=== PATIENT | female | born 1985 | race Caucasian/White ===

== ENCOUNTER → 2021-03-19 10:51 | Outpatient (BNVA) | payer SELFPAY | PROVIDERS: Family Provider Nurse Practitioner; PCP General Practice; Visit Provider Nurse Practitioner Family | DX: F41.9 Anxiety disorder, unspecified (principal); E28.2 Polycystic ovarian syndrome; N93.9 Abnormal uterine and vaginal bleeding, unspecified | CPT/HCPCS: 80053; 80061; 82306; 82607; 83036; 84443; 85025 ==

== ENCOUNTER → 2021-04-02 13:41 | Outpatient (BNVA) | payer SELFPAY | PROVIDERS: Family Provider Nurse Practitioner; PCP General Practice; Visit Provider Obstetrics & Gynecology | DX: N93.9 Abnormal uterine and vaginal bleeding, unspecified (principal) | CPT/HCPCS: 83036; 83525; 88175 ==

== ENCOUNTER → 2021-04-17 08:10 | Outpatient (BNVA) | payer MEDICAID, SELFPAY | PROVIDERS: Family Provider Nurse Practitioner; PCP General Practice; Visit Provider Obstetrics & Gynecology | DX: N85.8 Other specified noninflammatory disorders of uterus (principal); N93.9 Abnormal uterine and vaginal bleeding, unspecified | CPT/HCPCS: 76830 ==

== ENCOUNTER → 2021-05-09 10:55 | Outpatient (BNVA) | payer MEDICAID, SELFPAY | PROVIDERS: PCP General Practice; Visit Provider Obstetrics & Gynecology | DX: N93.9 Abnormal uterine and vaginal bleeding, unspecified (principal); N85.8 Other specified noninflammatory disorders of uterus | CPT/HCPCS: 87635 ==

== ENCOUNTER 2021-05-13 10:33 | Day surgery (SDC) | payer SELFPAY ==
[2021-05-09 12:24] VITALS: BMI 41.5
[2021-05-09 12:30] LABS: Basophils % 0.3 %; Eosinophils # 0.1 10^3/uL (0.0-0.8); Eosinophils % 0.8 %; Hemoglobin 13.5 g/dL (11.5-15.3); Lymphocytes % 32.4 %; Mean Corpuscular HGB Conc 32.9 g/dL (30.0-36.0); Mean Corpuscular Hemoglobin 27.4 pg (28.0-34.0); Mean Corpuscular Volume 83.2 fL (81-99); Mean Platelet Volume 9.4 fL (7.4-10.4); Monocytes # 0.5 10^3/uL (0.2-0.9); Monocytes % 5.7 %; Neutrophils # 5.53 10^3/uL (1.8-7.7); Neutrophils % 60.5 %; Nucleated Red Blood Cells % 0 %; Platelet Count 434 10^3/cmm (130-400); Red Blood Count 4.93 10^6/uL (4.1-5.3); Red Cell Distribution Width 13.4 % (12.1-15.1); White Blood Count 9.1 10^3/uL (4.0-10.0)
--- NOTE | 2021-05-09 12:46 | ANES.PREANE2 ---
Pre-Anesthetic Assessment Pre-Anesthetic Assessment: Height/Weight: Height 1.63 m Weight 109.769 kg Preop Diagnosis: fibroids Proposed Procedure: Operation Date: 05/13/21 10:20 Proposed Procedures p Hysteroscopy, dilation and curettage with myosure [id number] N85.8(Not Applicable) - Dai Estrada MD Familial anesthetic complications: None Social: Social History: No alcohol and No tobacco Exam: Pre-Anes Outpt Exam: alert, oriented x 3, clear to auscultation bilaterally and regular rate & rhythm Airway: Cervical ROM: WNL MP: 3 Dentition: Full Metabolic: Metabolic: DM (pcos vs dm) and Morbid obesity Comments: pcos Anesthetic Plan: ASA status: 2 Anesthesia: General PFSH Anesthesia PFSH: Medical History Anxiety PCOS (polycystic ovarian syndrome) Surgical History No pertinent past surgical history Family History Mother Diabetes Hypertension Sister Diabetes Hypertension Ovarian cyst Family/Other Stroke Denies family history of Clotting disorder Heart disease Psychiatric illness Bleeding disorder Cancer Thyroid disease Social History Marital status: Current occupation: [employer] Female Reproductive History: Date of last menstrual period: 04/28/21 Data Anesthesia CBC & Chem 7: 05/09/21 12:05 05/09/21 12:05 Other Labs: Laboratory Results - last 48 hr 05/09/21 12:05 WBC 9.1 RBC 4.93 Hgb 13.5 Hct 41.0 MCV 83.2 MCH 27.4 L MCHC 32.9 RDW 13.4 Plt Count 434 H MPV 9.4 Neut % (Auto) 60.5 Lymph % (Auto) 32.4 [place] % (Auto) 5.7 Eos % (Auto) 0.8 Baso % (Auto) 0.3 Neut # (Auto) 5.53 Lymph # (Auto) 3.0 [place] # (Auto) 0.5 Eos # (Auto) 0.1 Baso # (Auto) 0.0 Nucleated RBC % (auto) 0 Nucleated RBCs # 0.0 Cardiac Studies: No Data to Display
[2021-05-09 12:47] LABS: Anion Gap 13.8 (5-19); Blood Urea Nitrogen 12 mg/dL (6-20); Calcium 8.5 mg/dL (8.5-10.5); Carbon Dioxide 25 mmol/L (22-29); Chloride 103 mmol/L (98-107); Glomerular Filtration Rate 113.8 mL/min (90-130); Glucose 95 mg/dL (65-115); Osmolality Calculated 286 mOsm/kg (285-295); Potassium 3.8 mmol/L (3.5-5.1); Sodium 138 mmol/L (136-145)
[2021-05-13 11:02] VITALS: BP 159/89; PULSE 76; RESP 18; TEMP 36.8; O2SAT 97
[2021-05-13 11:17] LABS: Glucose Point of Care 103 mg/dL (70-110)
[2021-05-13 11:21] LABS: OR HCG Qualitative Urine Negative (Negative)
[2021-05-13] MEDS: ketorolac 30 mg/mL INJ IVP (11:34)
[2021-05-13] MEDS: sodium chloride 0.9% 1,000 ML 30 ML IV (11:36)
--- NOTE | 2021-05-13 13:04 | P.ANESUD_ITS ---
Pre-Anesthetic Update Pre-Anesthetic Assessment: Date of Surgery/Procedure: 05/13/21 Preop Demi gnosis: uterine mass Proposed Procedure: Operation Date: 05/13/21 12:15 Proposed Procedures p Hysteroscopy, dilation and curettage with myosure [id number] N85.8(Not Applicable) - Dai Estrada MD Any changes to Pre-Anesthetic Assessment?: No Last Intake: Intake Last Liquid Date 05/12/21 Last Liquid Time 20:00 Last Solid Date 05/12/21 Last Solid Time 20:00 Labs Last 48hrs: Laboratory Results - last 48 hr 05/13/21 05/13/21 11:08 11:19 POC Glucose 103 Urine HCG, Qual Negative Vitals: Temperature 98.3 F 05/13/21 11:02 Temperature Source Temporal Artery S can 05/13/21 11:02 Pulse Rate 76 05/13/21 11:02 Respiratory Rate 18 05/13/21 11:02 Blood Pressure 159/89 05/13/21 11:02 Blood Pressure Zara n 112 05/13/21 11:02 Pulse Oximetry 97 05/13/21 11:02 Oxygen Delivery Me thod 05/13/21 11:02 Exam: Pre-Anes Outpt Exam: alert, oriented x 3, clear to auscultation bilaterally and regular rate & rhythm Cardiac Studies: No Data to Display
--- NOTE | 2021-05-13 13:08 | W.PM.OPSUD ---
Surgery/Procedure H&P Update DATE OF PROCEDURE: May 13, 2021 DATE H&P PERFORMED: 05/09/21 H&P UPDATE INFORMATION: I have reviewed H&P completed within last 30 days, I have examined patient prior to procedure and No changes to prior documentation PREOP DIAGNOSIS: uterine mass PLANNED PROCEDURE: Operation Date: 05/13/21 12:15 Proposed Procedures p Hysteroscopy, dilation and curettage with myosure [id number] N85.8(Not Applicable) - Dai Estrada MD
--- NOTE | 2021-05-13 14:11 | PM.OP ---
Operative Report Date of procedure: May 13, 2021 Pre-op Diagnosis: uterine mass Post-op diagnosis: same Post-op Findings: large amount of endometrial tissue Procedure Done: hysteroscopy, dilation and curettage with myosure Specimens removed/disposition: endometrial curettings to pathology for fresh and frozen Surgeon: Dai Estrada Anesthesia: MAC Estimated blood loss (mL): 50 IV fluids (mL): 1,000 Complications: some bleeding post procedure controlled with pitocin and TXA Findings: 12 week sized uterus with excessive tissue Condition: stable Disposition: PACU Brief History: The patient initially saw me for abnormal uterine bleeding. She had an ultrasound which showed a 9 cm uterine mass. She was scheduled for surgery to take a sample of this tissue. Procedure: The patient was taken to the operating room where monitored anesthesia was administered and to be adequate. She was prepped and draped in the normal sterile fashion in the dorsal lithotomy position in Jann stirrups. A weighted speculum was placed into the vagina and the anterior lip of the cervix grasped with a single-tooth tenaculum. The uterus was sounded to [ ] cm. The cervix was not dilated. I was unable to pass the sound due to a mass in the uterus or cervix. The hysteroscope was advanced into the endometrial cavity. There was initally a polyp visualized. The MyoSure device was activated and the tissue was removed. As I removed tissue, I was able to enter the uterine cavity. It was filled completely with tissue. It had the look of Asherman's syndrome. Pictures were taken pre and post procedure. All instruments were removed. The patient had some bleeding postoperatively. This was treated with pitocin and TXA. The patient tolerated the procedure well. Sponge lap and needle counts were correct x3. She was taken to the recovery room in stable condition. I have contacted pathology and they will perform a frozen section of the specimen.
[2021-05-13 14:16] VITALS: BP 108/66; PULSE 81; RESP 17; TEMP 36.9; O2SAT 97
[2021-05-13 14:20] VITALS: BP 82/54; PULSE 76; RESP 16; O2SAT 98
--- NOTE | 2021-05-13 14:20 | PM.DCS ---
Discharge Providers Date of Discharge: May 13, 2021 Attending Provider at Discharge: Dai Estrada MD Primary Care Provider: Johan Monterroso MD Diagnoses at Discharge Discharge Diagnosis (1) Postoperative state: Status: Acute Reason for Visit Reason for Visit: Hysteroscopy, dilation and curettage with myosure Hospital Course Hospital Course The patient presented for surgery. she did well postoperatively and was ready for discharge. Discharge Data Data Completed and Pending: Pending at discharge Category Date Time Status ES surgery / GI i mages Routine Exams 05/13/21 13:13 Taken Labs from last 24 hours 05/13/21 05/13/21 11:19 11:08 POC Glucose 103 Urine HCG, Qual Negative Vitals: Last Vital Signs Temp 98.3 F 05/13/21 11:02 Pulse 76 05/13/21 11:02 Resp 18 05/13/21 11:02 BP 159/89 05/13/21 11:02 Pulse Ox 97 05/13/21 11:02 Discharge Plan Discharge Patient Disposition: Home Condition: Stable Prescriptions: Continued hydroxyzine HCl 25 mg tablet 25 mg PO BID PRN (Reason: anxiety) Qty: 60 RF: 2 omega-3 fatty acids 500 mg capsule 500 mg PO DAILY RF: 0 ergocalciferol (vitamin D2) 1,250 mcg (50,000 unit) capsule 1,250 mcg PO .weekly Qty: 12 RF: 0 metformin 500 mg tablet 500 mg PO TID Qty: 90 RF: 6 Discharge Orders: Discharge Order (Routine); Ordered 05/13/21 Ordered By: Dai Estrada Discharge Attestations Time Spent in Discharge Care*: less than 30 min Quality Metrics Clinical Quality Measures During this hospital stay, did patient experience: None Coding Level of Care Code Acute g DC note Diagnoses Postoperative state Z98.890
[2021-05-13 14:25] VITALS: BP 91/56; PULSE 80; RESP 20; O2SAT 99
[2021-05-13 14:30] VITALS: BP 117/63; PULSE 79; RESP 22; TEMP 36.9; O2SAT 98
--- NOTE | 2021-05-13 14:35 | ANE.PACU2 ---
Inpatient post-anesthesia follow up: Airway intact: Yes Vital signs: Temperature 98.5 F Pulse Rate 80 Respiratory Rate 20 Blood Pressure 91/56 Pulse Oximetry 99 Oxygen Delivery Me thod Room Air Oxygen Flow Rate Fraction of Inspir ed Oxygen Hydration adequate: Yes Nausea and vomiting: No Pain level: 1 Mental status: Baseline
[2021-05-13 14:49] VITALS: BP 116/74; PULSE 70; RESP 18; TEMP 36.9; O2SAT 99
== END 2021-05-13 16:00 | disposition home or self-care (01) ==
PROVIDERS: PCP General Practice; Visit Provider Obstetrics & Gynecology
PROC: 0UDB8ZZ Extraction of Endometrium, Via Natural or Artificial Opening Endoscopic (ICD-10-PCS; CPT 58558; principal; 2021-05-13 12:05)
DX: N85.8 Other specified noninflammatory disorders of uterus (principal); E11.9 Type 2 diabetes mellitus without complications; E66.01 Morbid (severe) obesity due to excess calories; Z68.41 Body mass index [BMI] 40.0-44.9, adult
CPT/HCPCS: 58558; 36415; 36416; 80048; 81025; 82962; 84703; 85025; 87086; 88305; 88331; J0690; J1885; J2250; J2405; J2704; J3010; J7030

== ENCOUNTER → 2021-08-28 08:10 | Outpatient (BNVA) | payer MEDICAID, SELFPAY | PROVIDERS: PCP General Practice; Visit Provider Obstetrics & Gynecology | DX: N85.2 Hypertrophy of uterus (principal) | CPT/HCPCS: 76830 ==

== ENCOUNTER → 2021-09-11 10:07 | Outpatient (BNVA) | payer MEDICAID, SELFPAY | PROVIDERS: PCP General Practice; Visit Provider Obstetrics & Gynecology | DX: N85.8 Other specified noninflammatory disorders of uterus (principal); Z20.822 Contact with and (suspected) exposure to COVID-19 | CPT/HCPCS: 87635 ==

== ENCOUNTER 2021-09-16 15:15 | Inpatient (IN) | payer SELFPAY ==
[2021-09-15 09:09] VITALS: BMI 42.0
[2021-09-16] VITALS (16 sets, daily range): BP systolic 95–140; BP diastolic 60–82; PULSE 66–91; RESP 15–25; TEMP 36.2–37.5; O2SAT 98–100; BMI 42.0
[2021-09-16 09:08] LABS: OR HCG Qualitative Urine Negative (Negative)
[2021-09-16 09:16] LABS: Basophils % 0.2 %; Eosinophils % 0.5 %; Hematocrit 43.9 % (37.0-47.0); Hemoglobin 14.7 g/dL (11.5-15.3); Lymphocytes # 2.6 10^3/uL (0.8-4.8); Lymphocytes % 32.2 %; Mean Corpuscular HGB Conc 33.5 g/dL (30.0-36.0); Mean Corpuscular Hemoglobin 27.9 pg (28.0-34.0); Mean Corpuscular Volume 83.3 fl (81-99); Mean Platelet Volume 9.3 fL (7.4-10.4); Monocytes # 0.5 10^3/uL (0.2-0.9); Monocytes % 5.7 %; Neutrophils # 4.95 10^3/uL (1.8-7.7); Neutrophils % 61.2 %; Nucleated Red Blood Cells % 0 %; Platelet Count 352 10^3/cmm (130-400); Red Blood Count 5.27 10^6/uL (4.1-5.3); Red Cell Distribution Width 14.4 % (12.1-15.1); White Blood Count 8.1 10^3/uL (4.0-10.0)
[2021-09-16] MEDS: acetaminophen 1,000 MG/100 ML PIGGYBACK 400 MG IV (09:20)
[2021-09-16] MEDS: sodium chloride 0.9% 1,000 ML 30 ML IV (09:20)
[2021-09-16] MEDS: gabapentin 300 mg Capsule PO (09:21)
[2021-09-16] MEDS: CELEcoxib 200 mg Capsule 400 MG PO (09:21)
[2021-09-16] MEDS: phenazopyridine 100 mg Tablet PO (09:22)
[2021-09-16] MEDS: ketorolac 30 mg/mL INJ IVP ×3 (09:23→22:34)
[2021-09-16 09:42] LABS: Alanine Aminotransferase 26 U/L (0-33); Albumin Level 4.2 g/dL (3.5-5.2); Alkaline Phosphatase 58 IU/L (35-105); Aspartate Amino Transferase 21 U/L (0-32); Blood Urea Nitrogen 12 mg/dL (6-20); Calcium 8.7 mg/dL (8.5-10.5); Carbon Dioxide 23 mmol/L (22-29); Chloride 104 mmol/L (98-107); Globulin 2.7 g/dL (1.3-4.6); Glomerular Filtration Rate 140.4 mL/min (90-130); Glucose 106 mg/dL (65-115); Osmolality Calculated 288 mOsm/kg (285-295); Sodium 139 mmol/L (136-145); Total Bilirubin 0.7 mg/dL (0.15-1.2); Total Protein 6.9 g/dL (6.6-8.7)
[2021-09-16 09:44] LABS: Anion Gap 15.5 (5-19); Potassium 3.5 mmol/L (3.5-5.1)
--- NOTE | 2021-09-16 09:58 | ANES.PREANE2 ---
Pre-Anesthetic Assessment Pre-Anesthetic Assessment: Height/Weight: Height 1.63 m Weight 111.13 kg Temp Pulse Resp BP Pulse Ox 98 F 66 18 95/60 99 09/16/21 08:27 09/16/21 08:27 09/16/21 08:27 09/16/21 08:27 09/16/21 08:27 Preop Diagnosis: Uterine mass, AUB, simple hyperplasia Proposed Procedure: Operation Date: 09/16/21 09:40 Proposed Procedures p Laparoscopic Assist Vaginal Hysterectomy 82430 N85.8(Not Applicable) - Dai Estrada MD s Laparoscopic Salpingectomy(Bilateral) - Dai Estrada MD Familial anesthetic complications: none Was Beta Nelly taken within 24 hours: N/A Was Clonidine taken within 24 hours: N/A Last intake: Intake Last Liquid Date 09/15/21 Last Liquid Time 19:00 Last Solid Date 09/15/21 Last Solid Time 19:00 Social: Social History: No alcohol and No tobacco Exam: Pre-Anes Outpt Exam: alert, oriented x 3, clear to auscultation bilaterally and regular rate & rhythm Airway: Cervical ROM: WNL MP: 3 Dentition: Full Metabolic: Metabolic: Morbid obesity Comments: pcos Anesthetic Plan: ASA status: 3 Anesthesia: General Risk of > 500 ml blood loss (7ml/kg in children): No Meds/Allergies Current Medications: Current Medications Generic Name Dose Route Start Last Admin Trade Name Freq PRN Reason Stop Dose Admin Sodium Chloride 1,000 mls @ 30 ml s/hr 09/16/21 08:30 09/16/21 09:20 Sodium Chloride 0.9% IV 09/17/21 08:29 30 mls/hr .Q24H TIMBO Administration Phenazopyridine HC l 100 mg 09/16/21 08:30 09/16/21 09:22 Phenazopyridine 100 Mg Tablet PO 100 mg ONCE TIMBO Administration PFSH Anesthesia PFSH: Medical History Anxiety PCOS (polycystic ovarian syndrome) Surgical History No pertinent past surgical history Family History Mother Diabetes Hypertension Sister Diabetes Hypertension Ovarian cyst Family/Other Stroke Denies family history of Clotting disorder Heart disease Psychiatric illness Bleeding disorder Cancer Thyroid disease Social History Marital status: Current occupation: [employer] Female Reproductive History: Date of last menstrual period: 09/12/21 Data Anesthesia CBC & Chem 7: 09/16/21 08:57 09/16/21 08:57 Other Labs: Laboratory Results - last 48 hr 09/16/21 09/16/21 09/16/21 08:57 08:57 09:07 WBC 8.1 RBC 5.27 Hgb 14.7 Hct 43.9 MCV 83.3 MCH 27.9 L MCHC 33.5 RDW 14.4 Plt Count 352 MPV 9.3 Neut % (Auto) 61.2 Lymph % (Auto) 32.2 [place] % (Auto) 5.7 Eos % (Auto) 0.5 Baso % (Auto) 0.2 Neut # (Auto) 4.95 Lymph # (Auto) 2.6 [place] # (Auto) 0.5 Eos # (Auto) 0.0 Baso # (Auto) 0.0 Nucleated RBC % (auto) 0 Nucleated RBCs # 0.0 Sodium 139 Potassium 3.5 Chloride 104 Carbon Dioxide 23 Anion Gap 15.5 BUN 12 Creatinine 0.5 GFR Calculation 140.4 H Glucose 106 Calculated Osmolality 288 Calcium 8.7 Total Bilirubin 0.7 AST 21 ALT 26 Alkaline Phosphatase 58 Total Protein 6.9 Albumin 4.2 Globulin 2.7 Urine HCG, Qual Negative Cardiac Studies: No Data to Display
--- NOTE | 2021-09-16 10:56 | W.PM.OPSUD ---
Surgery/Procedure H&P Update DATE OF PROCEDURE: September 16, 2021 DATE H&P PERFORMED: 09/11/21 H&P UPDATE INFORMATION: I have reviewed H&P completed within last 30 days, I have examined patient prior to procedure and No changes to prior documentation PREOP DIAGNOSIS: Uterine mass, AUB, simple hyperplasia PLANNED PROCEDURE: Operation Date: 09/16/21 09:40 Proposed Procedures p Laparoscopic Assist Vaginal Hysterectomy 65740 N85.8(Not Applicable) - Dai Estrada MD s Laparoscopic Salpingectomy(Bilateral) - Dai Estrada MD Related Problem List Diagnoses (1) Morbid obesity with BMI of 40.0-44.9, adult: (2) Thickened endometrium: (3) Uterine mass: (4) Abnormal uterine bleeding (AUB):
--- NOTE | 2021-09-16 12:42 | SUR.OPER ---
1230 attempted to reach pts family, phone number given was wrong.
--- NOTE | 2021-09-16 12:56 | PM.OP ---
Operative Report Date of procedure: September 16, 2021 Pre-op Diagnosis: Uterine mass, AUB, simple hyperplasia Post-op diagnosis: same Post-op Findings: Morbidly obese patient with difficult exposure of laparotomy wound Procedure Done: Exploratory laparotomy Surgeon: Bhanu Amin Surgeon: As financial sales assistant surgeon Heating Fixture Tender: Sherwin Nash and Justyna Sullivan Circulating nurse Shanell Fernandez Anesthesia: General (instrument maker apprentice Atul Batres) Estimated blood loss (mL): 10 Condition: stable Brief History: Patient undergoing total abdominal hysterectomy per gynecology service and intraoperative consultation was initiated for difficult exposure of the laparotomy wound Procedure: I was called in the OR by Dr. Nayak to help setting the Bookwalter for better exposure giving the patient morbid obesity status. Patient already had Pfannenstiel incision created by Dr. Paredes and the peritoneal cavity was already entered. There were already 2 laps in the abdomen that I did retrieve out and I started adjusting the Bookwalter after running the bowel and at that point the small bowel and colon were viable. To have a better exposure and the inferior lower part of the fascia was incised using Bovie cauterization under direct vision to facilitate exposure for LONG FILLER CIGAR ROLLER MACHINE service. Viscera look normal without complications and 3 laps wet to dry were placed in the abdominal cavity by me. Count was completed prior to leaving the OR. At this point I did handle the case over to Dr. Estrada Thank you for consulting general surgery to participate taking care Ms. Rodgers
--- NOTE | 2021-09-16 15:17 | P.OP_ITS ---
Operative Report Date of procedure: September 16, 2021 Pre-op Diagnosis: Uterine mass, AUB, simple hyperplasia Post-op diagnosis: same Post-op Findings: extremely enlarged uterus, about 20 week sized. polycystic ovaries. Normal appearing fallopian tubes. Uterus sounded to 10 cm Procedure Done: total abdominal hysterectomy with bilateral salpingectomy Specimens removed/disposition: uterus and bilateral fallopian tubes to pathology Surgeon: Dai Estrada Anesthesia: General Estimated blood loss (mL): 1,000 IV fluids (mL): 1,700 Urine output (mL): 1,000 Complications: unable to see into the pelvis due to the grossly enlarged uterus and the adhesions of bowel. I converted to an open procedure. Findings: 20 week sized uterus, polycystic ovaries and normal appearing fallopian tubes Condition: stable Disposition: floor Brief History: The patient was taken to the operating room where general anesthesia was administered and found to be adequate. She was prepped and draped in the normal sterile fashion in the dorsal lithotomy position. A monte catheter was placed. The anterior lip of the cervix was grasped with a single- tooth tenaculum. The [employer] uterine manipulator was placed. Attention was then turned to the abdomen. The gloves were changed. An infraumbilical incision was made and carried down to the underlying layer of fascia. I was unable to place the longest trocar due to the patient's obesity. I enlarged the incision, grasped the fascia and placed to the trocar from there. The abdomen was insufflated. The uterus appeared enlarged. A 5 mm incision was made on the left lateral side and the 5 mm trocar placed under direct visualization. The patient was placed in Trendelenburg and I attempted to move the bowel and the omentum from the pelvis. There were several adhesions of the bowel to the p blanca. I was unable to move anything. I was unable to manipulate the uterus to even see down in the pelvis. I was unable to visualize either fallopian tube or ovary. For these reasons I decided to open the patient. A Pfannenstiel skin incision was made and carried down to the underlying layer of fascia. The fascia was nicked in the midline and extended laterally with the Collins scissors. The fascia was then tented up and the rectus muscles dissected off sharply. The rectus muscles were in the midline and the abdomen entered bluntly with the digit. This peritoneal incision was extended superiorly and inferiorly with good visualization of the bladder. The O'García-O'Alvarenga retractor was unable to be placed due to the patient's obesity. The Bookwalter Rich retractor was placed and the bowel packed away. The bladder blade was placed as well. There was adhesions of the omentum to the right pelvic sidewall as well as several adhesion of the bowel and small bowel to the left adnexa. These were freed up with the Metzenbaum scissors. The round ligament was suture-ligated and opened. This was performed bilaterally. Using the cautery the fallopian tube was removed from the ovary. This was performed in a similar fashion bilaterally. A window was made medial to the infundibulopelvic ligament and inferior to the ovary. The infundibulopelvic ligament was clamped cut and suture-ligated bilaterally. The ovary remained attached to its pedicle. The fallopian tube was still attached to the uterus. At this point I could not go any further because of the large size of the uterus. I removed the fundus of the uterus in 2 separate pieces. The bleeding vessels were clamped with Deidra clamps. There was quite a bit of bleeding at this time. I tried to move as q uickly as possible to get the bleeding under control. The bladder flap was created sharply with the metzenbaum scissors and the bladder reflected caudally. The uterine arteries were then clamped cut and suture-ligated. The bleeding was well controlled at this time. The cardinal ligaments were cauterized with the hand-held cautery down to the angle of the vagina. The vaginal cuff was clamped and cut and the specimen was removed. The vaginal cuff was closed with 0 Vicryl incorporating the uterosacral ligaments into the lateral aspects of the vaginal cuff. There was excellent hemostasis. The pelvis was irrigated. The retractor as well as the packing was removed. The peritoneum was closed with 3- 0 Monocryl in a running fashion. The fascia was closed with 0 Vicryl in a running fashion with 2 separate sutures overlapping in the midline. The skin was closed with a running suture. The patient tolerated the procedure well. Sponge lap and needle counts were correct x2. She was taken to the recovery room in stable condition. Associated Problem List Diagnoses (1) Morbid obesity with BMI of 40.0-44.9, adult: (2) Thickened endometrium: (3) Uterine mass: (4) Abnormal uterine bleeding (AUB):
[2021-09-16] MEDS: oxyCODONE-APAP 5-325 mg Tablet PO ×2 (16:20→22:34)
[2021-09-16] MEDS: docusate sodium 100 mg Capsule PO (18:52)
[2021-09-16] MEDS: dextrose 5%-lactated ringers 1,000 ML 125 ML IV (18:52)
[2021-09-16] MEDS: ondansetron 2 mg/ML SDV 2 mL 4 MG IVP (19:30)
[2021-09-16] MEDS: metformin 500 mg Tablet PO (21:05)
--- NOTE | 2021-09-16 21:43 | PC.NURSE ---
At 2109 attempted to get patient up to chair, as she stood up, patient had approximately 30 ml of blood run down her leg and onto the floor, returned patient to bed and patient reported feeling light headed and hot , checked vitals and they were BP 104/67, HR 79, SPO2 98%, at 2124 her vitals were reassessed and were BP 130/82, HR 83, SPO2 99%, RR 25. At that time we also reassessed her bleeding and it was a scant amount. Patient reported no longer feeling lightheaded, dizzy, or hot, at this time and was then helped up to the chair. After patient sat in chair, bleeding was reassessed again which was a small amount. Patient reported feeling good sitting in the chair. Patient educated that once she felt able, RN and patient would ambulate on unit.
--- NOTE | 2021-09-16 22:30 | PC.NURSE ---
Patient was up ambulating the ochoa at 2230, patient made one full lap around the unit and tolerated well.
[2021-09-17] VITALS (7 sets, daily range): BP systolic 107–128; BP diastolic 68–76; PULSE 71–76; RESP 15–19; TEMP 36.4–37.5; O2SAT 98–100
[2021-09-17] MEDS: dextrose 5%-lactated ringers 1,000 ML 125 ML IV (04:02)
[2021-09-17] MEDS: ketorolac 30 mg/mL INJ IVP (04:54)
[2021-09-17 05:01] LABS: Hematocrit 30.9 % (37.0-47.0); Mean Corpuscular HGB Conc 32.4 g/dL (30.0-36.0); Mean Corpuscular Hemoglobin 27.8 pg (28.0-34.0); Mean Corpuscular Volume 85.8 fl (81-99); Mean Platelet Volume 9.3 fL (7.4-10.4); Platelet Count 319 10^3/cmm (130-400); Red Cell Distribution Width 14.4 % (12.1-15.1); White Blood Count 13.7 10^3/uL (4.0-10.0)
[2021-09-17] MEDS: metformin 500 mg Tablet PO ×3 (09:59→20:59)
[2021-09-17] MEDS: docusate sodium 100 mg Capsule PO ×2 (10:00→18:07)
[2021-09-17] MEDS: oxyCODONE-APAP 5-325 mg Tablet PO ×2 (10:44→21:55)
--- NOTE | 2021-09-17 12:20 | PM.PN ---
Vitals/I&O/Wt Last Vital Signs Temp 97.6 F 09/17/21 10:10 Pulse 73 09/17/21 10:10 Resp 18 09/17/21 10:44 BP 113/76 09/17/21 10:10 Pulse Ox 100 09/17/21 10:10 09/16/21 09/17/21 09/17/21 22:59 06:59 14:59 Intake Total 1180 / 1340 1050 / 2390 631.25 / 631.25 Output Total 4000 / 4000 1650 / 5650 425 / 425 Balance -2820 / -2660 -600 / -3260 206.25 / 206.25 Weight last 48 hrs Weight 244 lb 15.995 oz Physical Exam Narrative: EXAM NARRATIVE: the patient is doing well this morning. She is up and ambulating. she denies passing flatus. she is currently on a liquid diet. Pain has moderate control. Vaginal bleeding has been minimal Const: COMMON NORMALS: no acute distress, patient oriented x3, no limitations and alert GENERAL APPEARANCE: cooperative, comfortable, well kempt and well developed ORIENTATION/CONSCIOUSNESS: Yes awake, Yes oriented to person, Yes oriented to place and Yes oriented to time Resp: COMMON NORMALS: normal respiratory effort EFFORT & INSPECTION: Yes able to speak in complete sentences GI: COMMON NORMALS: Soft to palpation and non-tender PALPATION: Yes Soft to palpation Extremity: COMMON NORMALS: no calf tenderness Neuro: COMMON NORMALS: patient oriented x3 SENSORIUM/ORIENTATION: Yes alert, Yes oriented to person, Yes oriented to place and Yes oriented to time Psych: APPEARANCE: Yes well kempt Urinary Catheter Management^: Bentley: Cath Placed During This Visit: yes Reason for Continuing Indwelling Catheter: Perioperative Use in Selected Surgeries Urinary Catheter Date of Insertion: 09/16/21 Urinary Catheter Time of Insertion: 11:30 Data : 09/17/21 04:45 09/16/21 08:57 Micro: Microbiology 09/16/21 11:30 Urine Culture - Preliminary Urine Catheterized A&P Assessment and plan (1) Postoperative state: doing well postoperatively advance to full liquid diet. Plan to advance to regular diet once passing flatus plan for discharge tomorrow Status: Acute Attestations Medical Necessity Statement*: The patient had an abdominal hysterectomy. This requires at least two midnights in the hospital. Coding Level of Care Code Acute Director Of Residential Services for Chg Fwd Exam Expanded Problem Focused Diagnoses Postoperative state Z98.890
--- NOTE | 2021-09-17 13:55 | PC.NURSE ---
Pt has walked 3 separate times today in the hallway, for a total of 6 laps.
[2021-09-17 15:27] LABS: Anion Gap 15.3 (5-19); Blood Urea Nitrogen 5 mg/dL (6-20); Calcium 8.5 mg/dL (8.5-10.5); Carbon Dioxide 24 mmol/L (22-29); Chloride 101 mmol/L (98-107); Glomerular Filtration Rate 113.8 mL/min (90-130); Glucose 123 mg/dL (65-115); Osmolality Calculated 283 mOsm/kg (285-295); Potassium 3.3 mmol/L (3.5-5.1); Sodium 137 mmol/L (136-145)
[2021-09-17] MEDS: ibuprofen 800 mg tablet PO ×2 (15:36→23:38)
[2021-09-17] MEDS: simethicone 80 mg Chew PO (15:38)
[2021-09-18 05:04] VITALS: BP 114/57; PULSE 72; RESP 15; O2SAT 97
--- NOTE | 2021-09-18 08:03 | PM.DCS ---
Discharge Providers Date of Admission: 09/16/21 15:15 Date of Discharge: September 18, 2021 Attending Provider at Admission: Dai Estrada MD Attending Provider at Discharge: Dai Estrada MD Primary Care Provider: Dai Estrada MD Diagnoses at Discharge Discharge Diagnosis (1) Postoperative state: Status: Acute Reason for Visit Reason for Visit: Uterine Mass Hospital Course Hospital Course The patient was admitted for surgery. She did well postoperatively and was ready for discharge on day #2 Physical Exam Narrative: EXAM NARRATIVE: The patient is doing well this morning. Const: COMMON NORMALS: no acute distress, patient oriented x3, alert and well nourished GENERAL APPEARANCE: cooperative, comfortable, well kempt and well developed ORIENTATION/CONSCIOUSNESS: Yes awake, Yes oriented to person, Yes oriented to place and Yes oriented to time Resp: COMMON NORMALS: normal respiratory effort EFFORT & INSPECTION: Yes able to speak in complete sentences GI: COMMON NORMALS: Soft to palpation and non-tender PALPATION: Yes Soft to palpation Extremity: COMMON NORMALS: no calf tenderness Neuro: COMMON NORMALS: patient oriented x3 SENSORIUM/ORIENTATION: Yes alert, Yes oriented to person, Yes oriented to place and Yes oriented to time Psych: APPEARANCE: Yes well kempt Skin: WOUNDS: Yes surgical site (clean/dry/covered) Urinary Catheter Management^: Bentley: Cath Placed During This Visit: yes Reason for Continuing Indwelling Catheter: Perioperative Use in Selected Surgeries Urinary Catheter Date of Insertion: 09/16/21 Urinary Catheter Time of Insertion: 11:30 Discharge Data Data Completed and Pending: Pending at discharge Category Date Time Status Basic Metabolic P rogelio AM LABS Lab 09/18/21 04:00 Ordered Complete Blood Co unt w/Auto AM LABS Lab 09/18/21 04:00 Ordered PRBC [Leukocyte R educed RBC] Routin e Lab 09/16/21 08:57 Results Type and Screen R outine Lab 09/16/21 08:57 Results Urine Culture Rou medina Lab 09/16/21 11:30 Results Pathology: Surgic al [PTH] Routine Pth 09/16/21 15:17 Received Labs from last 24 hours 09/17/21 09/16/21 14:40 08:57 Sodium 137 Potassium 3.3 L Chloride 101 Carbon Dioxide 24 Anion Gap 15.3 BUN 5 L Creatinine 0.6 GFR Calculation 113.8 Glucose 123 H Calculated Osmolal ity 283 L Calcium 8.5 Crossmatch See Detail Vitals: Last Vital Signs Temp 99.5 F 09/17/21 21:56 Pulse 72 09/18/21 05:04 Resp 15 09/18/21 05:04 BP 114/57 09/18/21 05:04 Pulse Ox 97 09/18/21 05:04 Discharge Plan Discharge Patient Disposition: Home Condition: Stable Prescriptions: New oxycodone-acetaminophen 5-325 mg Tablet 1 tab PO Q4H PRN (Reason: Moderate To Severe Pain) Qty: 30 RF: 0 docusate sodium 100 mg Capsule 100 mg PO BID Qty: 60 RF: 0 Continued omega-3 fatty acids 500 mg capsule 500 mg PO DAILY RF: 0 medroxyprogesterone [Provera] 10 mg tablet 10 mg PO DAILY Qty: 30 RF: 4 ergocalciferol (vitamin D2) 1,250 mcg (50,000 unit) capsule 1,250 mcg PO .weekly Qty: 12 RF: 0 metformin 500 mg tablet 500 mg PO TID Qty: 90 RF: 6 hydroxyzine HCl 25 mg tablet 25 mg PO BID PRN (Reason: anxiety) Qty: 60 RF: 2 Discharge Orders: Discharge Order (Routine); Ordered 09/18/21 Ordered By: Dai Estrada Referrals: Jim Nunez MD [Physician] - 09/22/21 11:00 am (Your 1 week post-op appointment is scheduled for 09/22/21 @11:00. Your 6 week post-op appointment is scheduled for 11/03/21 @3:00. ) Patient Instructions: Opioid Safety (DC), Hysterectomy (DC), OB Abdominal Surgery - [facility], OB Discharge Report, OB Food/Drug Interaction Guide, Opioid Safety Discharge Attestations Time Spent in Discharge Care*: less than 30 min Quality Metrics Clinical Quality Measures During this hospital stay, did patient experience: None Coding Level of Care Code Acute Chg FW DC note Diagnoses Postoperative state Z98.890
[2021-09-18] MEDS: ibuprofen 800 mg tablet PO (08:29)
[2021-09-18] MEDS: docusate sodium 100 mg Capsule PO (08:29)
[2021-09-18] MEDS: metformin 500 mg Tablet PO (08:29)
[2021-09-18 08:35] VITALS: BP 103/67; PULSE 95; RESP 18; TEMP 36.7; O2SAT 99
[2021-09-18 08:47] VITALS: RESP 18; O2SAT 99
[2021-09-18] MEDS: oxyCODONE-APAP 5-325 mg Tablet PO (08:47)
== END 2021-09-18 08:55 | disposition home or self-care (01) | DRG 742 ==
LOC: OBGYN 15:23
PROVIDERS: Anesthesiology; Admitting Provider Obstetrics & Gynecology; PCP Obstetrics & Gynecology; Visit Provider Obstetrics & Gynecology
PROC: 0UT90ZZ Resection of Uterus, Open Approach (ICD-10-PCS; CPT 58150; principal; 2021-09-16 09:30)
PROC: 0UT90ZZ Resection of Uterus, Open Approach (ICD-10-PCS; CPT 58700; 2021-09-16 09:30)
PROC: 0UT9FZZ Resection of Uterus, Via Natural or Artificial Opening With Percutaneous Endoscopic Assistance (ICD-10-PCS; 2021-09-16 09:30)
DX: N85.8 Other specified noninflammatory disorders of uterus (principal); Z68.41 Body mass index [BMI] 40.0-44.9, adult; N93.9 Abnormal uterine and vaginal bleeding, unspecified; R93.89 Abnormal findings on diagnostic imaging of other specified body structures; E66.01 Morbid (severe) obesity due to excess calories; N85.2 Hypertrophy of uterus; E28.2 Polycystic ovarian syndrome; N73.6 Female pelvic peritoneal adhesions (postinfective); F41.9 Anxiety disorder, unspecified
CPT/HCPCS: 36415; 80048; 80053; 84703; 85025; 85027; 86850; 86900; 86920; 87086; 88307; 96374; J0690; J1170; J1885; J2405; J2704; J3010; J3490; J7030; P9041

== ENCOUNTER 2023-11-17 17:16 | Emergency (ER) | payer SELFPAY ==
[2023-11-17 17:35] VITALS: BP 130/82; PULSE 96; RESP 18; TEMP 37.6; O2SAT 99; BMI 41.1
--- NOTE | 2023-11-17 17:38 | XRR_ITS ---
PROCEDURE INFORMATION: Exam: XR Chest Exam date and time: 11/17/2023 5:42 PM Age: 37 years old Clinical indication: Cough and fever; Additional info: Fever, cough TECHNIQUE: Imaging protocol: Radiologic exam of the chest. Views: 1 view. COMPARISON: ES surgery / GI images 05/13/2021 12:13 PM FINDINGS: Lungs: No focal consolidation or evidence of airspace disease. Pleural spaces: No evidence of pneumothorax or pleural effusion Heart/Mediastinum: Cardiomediastinal silhouette is within normal limits. Bones/joints: No evidence of acute osseous abnormality. XR/XR chest 1V portable [id number] IMPRESSION: 1. No acute cardiopulmonary abnormality.
--- NOTE | 2023-11-17 18:08 | ED_ITS ---
HPI - Fever General: Chief Complaint: Fever Stated Complaint: fever,N/V Time Seen by Provider: 11/17/23 18:06 History of Present Illness: 37-year-old female comes in today with 1 week history of cough and congestion. Patient reports over the last 2 to 3 days she has had some more productive sputum that is green in color. Patient reports continued fever. Patient reports right ear pain. Patient appears mildly unwell but not toxic. Patient denies smoking or chronic medical problems. Patient does have a history of being on metformin. Review of Systems General: Reports: 10 or more systems reviewed and unremarkable except in HPI and below ENMT: Reports: throat pain and ear or mastoid pain Resp: Reports: productive cough PFSH ED PFSH: Medical History Anxiety PCOS (polycystic ovarian syndrome) Surgical History No pertinent past surgical history Family History Mother Diabetes Hypertension Sister Diabetes Hypertension Ovarian cyst Family/Other Stroke Denies family history of Clotting disorder Heart disease Psychiatric illness Bleeding disorder Cancer Thyroid disease Social History (Updated 11/19/22 @ 09:16 by Treva Plaza LPN) Substance/Drug Use: never Marital status: Physical Exam Const: COMMON NORMALS: alert HENMT: COMMON NORMALS: normocephalic HEAD & SCALP: normocephalic THROAT: posterior oropharynx abnormal erythema Neck/C-Spine: COMMON NORMALS: full ROM and no meningeal signs Resp: COMMON NORMALS: normal respiratory effort and clear to auscultation bilaterally AUSCULTATION: clear to auscultation bilaterally Cardio: COMMON NORMALS: regular rate RATE: regular rate Back/Pelvis: COMMON NORMALS: thoracic and lumbar spine normal to inspection Extremity: COMMON NORMALS: normal to inspection and no pedal edema Neuro: SENSORIUM/ORIENTATION: Yes alert MENINGEAL SIGNS: Yes no meningeal signs Skin: COMMON NORMALS: turgor normal GENERAL SKIN EXAM: turgor normal Course Vital Signs: Vital signs: Vital Signs Temperature 99.6 F 11/17/23 17:35 Pulse Rate 82 11/17/23 19:35 Respiratory Rate 14 11/17/23 19:35 Blood Pressure 116/66 11/17/23 19:35 Pulse Oximetry 97 11/17/23 19:35 Oxygen Delivery Me thod Room Air 11/17/23 18:27 MDM - Fever Medical Decision Making 37-year-old female comes in today with cough and congestion for 1 week. On exam the right tympanic membrane is erythematous and dull. Posterior pharynx is erythematous. Respirations are even lungs are clear to auscultation. Vital signs are normal. Differential diagnosis includes but not limited to bronchitis, upper respiratory infection, otitis media, rhinosinusitis, pharyngitis, influenza, COVID-19. Patient swabbed for COVID, strep, influenza were negative. Is most likely due to the patient's length of time for illness. She probably is getting a secondary bacterial infection. Will go ahead and treat with doxycycline for illness along with cough medicine. Patient reported understanding of care plan need for follow-up or return to the ER. Lab Data Radiology Impressions Chest X-Ray 11/17/23 17:38 IMPRESSION: 1. No acute cardiopulmonary abnormality. Laboratory Results Influenza Type A Ag negative (Negative) 11/17/23 18:15 Influenza Type B Ag negative (Negative) 11/17/23 18:15 SARS-CoV-2 Ag (Rapid) negative (Negative) 11/17/23 18:14 Group A Strep Rapid Negative (Negative) 11/17/23 18:15 No radiology studies performed this visit Discharge Plan Discharge Patient Disposition: Home Clinical Impression: Bronchitis Otitis media Qualifiers: Otitis media type: suppurative Chronicity: acute Laterality: right Recurrence: not specified as recurrent Spontaneous tympanic membrane rupture: without spontaneous rupture Qualified Code(s): H66.001 - Acute suppurative otitis media without spontaneous rupture of ear drum, right ear Condition: Stable Prescriptions: New doxycycline hyclate 100 mg capsule 100 mg PO BID 7 Days Qty: 14 0RF promethazine-DM 6.25-15 mg/5 mL syrup 5 ml PO Q6H PRN (Reason: cough) Qty: 118 0RF No Action omega-3 fatty acids 500 mg capsule 500 mg PO DAILY fluconazole [Diflucan] 150 mg tablet 150 mg PO Q3D 0 Days Qty: 3 0RF ergocalciferol (vitamin D2) 1,250 mcg (50,000 unit) capsule 1,250 mcg PO .weekly Qty: 12 0RF metformin 500 mg tablet 500 mg PO TID Qty: 90 6RF Rx Instructions: take 1 tablet daily for 2 weeks, then twice daily for 2 weeks, then 500mg am and 1000 mg pm after that Discharge Orders: Discharge ED (Routine); Ordered 11/17/23 Ordered By: lEiu Mixon Referrals: Ernestine Delaney MD [Primary Care Provider] - Discharge Diet: Usual diet Discharge Activity: Increase activity as tolerated Patient Instructions: Acute Bronchitis (ED) Activity Restrictions/Additional Instructions: Drink plenty of water and fluids. Use acetaminophen and ibuprofen for pain and discomfort. Use doxycycline 100 mg twice a day for antibiotic to cover for ear infection and bronchitis. Use Promethazine DM 5 mL every 6 hours as needed for persistent cough. Follow-up with primary care for further instructions. Return to ED for new concerns or worsening symptoms. 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
[2023-11-17] MEDS: ketorolac 30 mg/mL INJ IM (18:23)
[2023-11-17] MEDS: dexamethasone 10 mg/mL INJ IM (18:25)
[2023-11-17 18:27] VITALS: BP 135/93; PULSE 89; O2SAT 95
[2023-11-17 18:34] LABS: Rapid Strep A Test Negative (Negative)
[2023-11-17 18:44] LABS: Influenza A by IFA negative (Negative); Influenza B by IFA negative (Negative)
[2023-11-17 18:45] LABS: SARS Covid-2 Antigen negative (Negative)
[2023-11-17] MEDS: doxycycline 100 mg Tablet PO (19:32)
[2023-11-17 19:35] VITALS: BP 116/66; PULSE 82; RESP 14; O2SAT 97
== END 2023-11-17 19:36 | disposition home or self-care (01) ==
PROVIDERS: Emergency Provider Nurse Practitioner Family; PCP Family Medicine
DX: H66.001 Acute suppurative otitis media without spontaneous rupture of ear drum, right ear (principal); J40 Bronchitis, not specified as acute or chronic; Z79.84 Long term (current) use of oral hypoglycemic drugs; Z11.52 Encounter for screening for COVID-19
CPT/HCPCS: 71045; 87081; 87426; 87804; 87880; 96372; 99284; J1100; J1885

== ENCOUNTER → 2024-05-09 08:52 | Outpatient (BNVA) | payer MEDICAID, SELFPAY | PROVIDERS: PCP Family Medicine; Visit Provider Nurse Practitioner Family | DX: F41.9 Anxiety disorder, unspecified (principal); E28.2 Polycystic ovarian syndrome; E66.01 Morbid (severe) obesity due to excess calories; Z68.41 Body mass index [BMI] 40.0-44.9, adult | CPT/HCPCS: 80053; 83036; 85025 ==

== ENCOUNTER 2024-08-09 05:58 | Emergency (ER) | payer MEDICAID, SELFPAY ==
[2024-08-09 06:03] VITALS: BP 160/105; PULSE 74; RESP 16; TEMP 36.6; O2SAT 100; BMI 42.0
--- NOTE | 2024-08-09 06:16 | W.ED.SKABFB ---
HPI - Skin/Abscess/Foreign Bdy General: Chief complaint: Skin/Abscess/Foreign Body Stated complaint: rash all over body Time Seen by Provider: 08/09/24 06:12 History of Present Illness: 38-year-old female presents emergency room with complaints of a rash. She noted a rash on the left side of her body on her back extending around her breast that began blistering is exquisitely tender even to light touch. Low-grade subjective fever no other symptoms. Associated symptoms: Deny chills or fever(s) Related Data Previous Rx's Medication Instructions Recorded naproxen 500 mg tablet 500 mg PO BID PRN pain #60 tabs 05/09/24 ondansetron 4 mg disintegrating 4 mg PO Q6H PRN nausea and 05/09/24 tablet vomiting #90 tabs metformin 500 mg tablet,extended 500 mg PO BID 30 days #60 tabs 05/10/24 release 24 hr cyclobenzaprine 10 mg tablet 10 mg PO TID PRN muscle spasm #90 05/16/24 tabs trazodone 50 mg tablet 50 mg PO .QHS 30 days #30 tabs 05/16/24 hydrocodone 5 mg-acetaminophen 325 1 tab PO Q6H PRN pain #20 tabs 08/09/24 mg tablet valacyclovir 1 gram tablet 1,000 mg PO TID #30 tabs 08/09/24 (Valtrex) Allergies Allergy/AdvReac Type Severity Reaction Status Date / Time buspirone Allergy tongue and Verified 08/09/24 06:06 throat itch venlafaxine [From Effexor] Allergy ADR-Vomitin Verified 08/09/24 06:06 g Review of Systems Const: Denies: fever(s) or chills Card: Denies: chest pain Resp: Denies: dyspnea GI: Denies: abdominal pain : Denies: dysuria, urinary frequency or urinary urgency Musc: Denies: neck pain or back pain PFS ED PFSH: Medical History PCOS (polycystic ovarian syndrome) Anxiety Surgical History No pertinent past surgical history Family History Mother Diabetes Hypertension Sister Diabetes Hypertension Ovarian cyst Family/Other Stroke Denies family history of Clotting disorder Heart disease Psychiatric illness Bleeding disorder Cancer Thyroid disease Social History Smoking and tobacco/nicotine status: never used tobacco/nicotine Substance/Drug Use: never Marital status: Physical Exam Const: COMMON NORMALS: no acute distress GENERAL APPEARANCE: cooperative and comfortable ORIENTATION/CONSCIOUSNESS: Yes awake, Yes oriented to person, Yes oriented to place and Yes oriented to time HENMT: COMMON NORMALS: normocephalic, atraumatic and hearing grossly normal bilaterally HEAD & SCALP: normocephalic and atraumatic Resp: COMMON NORMALS: normal respiratory effort, No retractions, No use of accessory muscles and clear to auscultation bilaterally AUSCULTATION: clear to auscultation bilaterally Cardio: COMMON NORMALS: regular rate, regular rhythm and No murmurs present (Cardio) RATE: regular rate RHYTHM: regular rhythm GI: COMMON NORMALS: Soft to palpation and No hepatosplenomegaly present AUSCULTATION: Yes normoactive bowel sounds PALPATION: Yes Soft to palpation, No Tenderness to palpation present (GI), No Guarding due to palpation present (GI) and Yes No hepatosplenomegaly present Extremity: COMMON NORMALS: normal to inspection, capillary refill normal, no clubbing, cyanosis or edema, no calf tenderness and no pedal edema Neuro: SENSORIUM/ORIENTATION: Yes oriented to person, Yes oriented to place and Yes oriented to time Skin: COMMON NORMALS: no rashes or lesions noted GENERAL SKIN EXAM: no rashes or lesions noted OTHER: Vesicular rash in dermatomal pattern on the left side of the chest extending to the back at approximately the T6-7 level. None of the vesicles have crusted over yet. Mild localized erythema no induration no appearance of secondary infection Course Vital Signs: Vital signs: Vital Signs Temperature 97.8 F 08/09/24 06:03 Pulse Rate 74 08/09/24 06:03 Respiratory Rate 16 08/09/24 06:03 Blood Pressure 160/105 08/09/24 06:03 Pulse Oximetry 100 08/09/24 06:03 Oxygen Delivery Me thod Room Air 08/09/24 06:03 MDM - Skin/Abscess/Foreign Bdy Medicial Decision Making Varicella-zoster with dermatomal vesicular rash. Start valacyclovir 1 g 3 times daily for 10 days additionally gave hydrocodone for pain follow-up with primary care discussed usual course of resolution of strain. Patient advised rash will continue to develop for several days after starting the antiviral and then will crust over to a dark eschar. Also reviewed with her that the cutaneous discomfort along that dermatome may persist for some time as the rash he heals. Follow-up with primary care Medical Records I reviewed the patient's medical records. Lab Data I reviewed the patient's lab results. No radiology studies performed this visit Discharge Plan Discharge Patient Disposition: Home Clinical Impression: Herpes zoster Condition: Stable Prescriptions: New hydrocodone-acetaminophen 5-325 mg tablet 1 tab PO Q6H PRN (Reason: pain) Qty: 20 0RF valacyclovir [Valtrex] 1 gram tablet 1,000 mg PO TID Qty: 30 0RF No Action ondansetron 4 mg tablet,disintegrating 4 mg PO Q6H PRN (Reason: nausea and vomiting) Qty: 90 0RF naproxen 500 mg tablet 500 mg PO BID PRN (Reason: pain) Qty: 60 0RF cyclobenzaprine 10 mg tablet 10 mg PO TID PRN (Reason: muscle spasm) Qty: 90 1RF trazodone 50 mg tablet 50 mg PO .QHS 30 Days Qty: 30 0RF metformin 500 mg tablet extended release 24 hr 500 mg PO BID 30 Days Qty: 60 3RF Discharge Orders: Discharge ED (Routine); Ordered 08/09/24 Ordered By: Tolu Tran Referrals: Ernestine Delaney MD [Primary Care Provider] - Discharge Diet: Usual diet Discharge Activity: Increase activity as tolerated Patient Instructions: Shingles (ED), Opioid Safety, Pain Management Activity Restrictions/Additional Instructions: Thank you for choosing [facility] for your healthcare needs today. It is very important that you follow up as instructed or that you return to the Emergency Department should you have concerns or if your condition changes or worsens in any way. 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
[2024-08-09 06:46] VITALS: BP 160/105; PULSE 74; RESP 16; O2SAT 100
== END 2024-08-09 06:46 | disposition home or self-care (01) ==
PROVIDERS: Emergency Provider Family Medicine; PCP Family Medicine
DX: B02.9 Zoster without complications (principal)
CPT/HCPCS: 99283

== ENCOUNTER 2025-07-25 16:14 | Emergency (ER) | payer SELFPAY ==
[2025-07-25 16:16] VITALS: BP 159/88; PULSE 82; RESP 18; TEMP 36.8; O2SAT 99; BMI 41.1
--- NOTE | 2025-07-25 16:31 | XRR_ITS ---
PROCEDURE INFORMATION: Exam: XR Chest Exam date and time: 07/25/2025 4:32 PM Age: 39 years old Clinical indication: Shortness of breath TECHNIQUE: Imaging protocol: Radiologic exam of the chest. Views: 1 view. COMPARISON: CR XR chest 1V portable [id number] 11/17/2023 5:42 PM FINDINGS: Lungs: Unremarkable. No consolidation. Pleural spaces: Unremarkable. No pleural effusion. No pneumothorax. Heart/Mediastinum: Unremarkable. No cardiomegaly. Bones/joints: Unremarkable. XR/XR chest 1V portable [id number] IMPRESSION: No acute finding.
--- NOTE | 2025-07-25 16:39 | ED_ITS ---
HPI - URI/Sore Throat General: Chief Complaint: Upper Respiratory Infection Stated Complaint: Coughing CP Throat burning fever fever weakness Time Seen by Provider: 07/25/25 16:16 History of Present Illness: 39-year-old female with a history of shyanne betes, obesity, PCOS and anxiety who presents to the emergency room with upper respiratory symptoms. This started Wednesday, about 4 to 5 days ago. She has had a cough. She feels short of breath. She has had fevers. She had congestion and a sore throat. Related Data Previous Rx's ?Medication ?Instructions ?Recorded naproxen 500 mg tablet 500 mg PO BID PRN pain #60 t abs 05/09/24 ondansetron 4 mg disintegrating 4 mg PO Q6H PRN nausea and 05/09/24 tablet vomiting #90 tabs metformin 500 mg tablet,extended 500 mg PO BID 30 days #60 tabs 05/10/24 release 24 hr cyclobenzaprine 10 mg tablet 10 mg PO TID PRN muscle s pasm #90 05/16/24 tabs trazodone 50 mg tablet 50 mg PO .QHS 30 days #30 ta bs 05/16/24 hydrocodone 5 mg-acetaminophen 325 1 tab PO Q6H PRN pa in #20 tabs 08/09/24 mg tablet valacyclovir 1 gram tablet 1,000 mg PO TID #30 tabs (Valtrex) benzonatate 200 mg capsule 200 mg PO TID PRN cough #30 caps 07/25/25 dexamethasone 6 mg tablet 6 mg PO DAILY 5 days #5 tabs 07/25/25 doxycycline hyclate 100 mg capsule 100 mg PO BID 7 day s #14 caps 07/25/25 Allergies Allergy/AdvReac Type Severity Reaction Status Date / Time buspirone Allergy tongue and Verified 07/25/25 16:20 throat itch venlafaxine (From Effexor) Allergy ADR-Vomitin Verified 07/25/25 16:20 g Review of Systems Narrative: Constitutional symptoms: Negative except as documented in HPI. Skin symptoms: Negative except as documented in HPI. Eye symptoms: Negative except as documented in HPI. ENMT symptoms: Negative except as documented in HPI. Respiratory symptoms: Negative except as documented in HPI. Cardiovascular symptoms: Negative except as documented in HPI. Gastrointestinal symptoms: Negative except as documented in HPI. Genitourinary symptoms: Negative except as documented in HPI. Musculoskeletal symptoms: Negative except as documented in HPI. Neurologic symptoms: Negative except as documented in HPI. Psychiatric symptoms: Negative except as documented in HPI. Endocrine symptoms: Negative except as documented in HPI. COUNT INCLUDES THE [facility] ED PFSH: Medical History (Updated 07/25/25 @ 17:02 by Loulou Middleton MD) PCOS (polycystic ovarian syndrome) Anxiety Surgical History No pertinent past surgical history Family History Mother Diabetes Hypertension Sister Diabetes Hypertension Ovarian cyst Family/Other Stroke Denies family history of Clotting disorder Heart disease Psychiatric illness Bleeding disorder Cancer Thyroid disease Social History Smoking and tobacco/nicotine status: never used tobacco/nicotine Substance/Drug Use: never Marital status: Physical Exam Narrative: EXAM NARRATIVE: General: Alert, no acute distress. Skin: Warm, dry. Head: Normocephalic, atraumatic. Neck: Supple, trachea midline. Eye: Extraocular movements are intact. Ears, nose, mouth and throat: Tacky oral mucosa. Mild erythema of the oropharyn x but no exudate Cardiovascular: Regular, Normal peripheral perfusion. Respiratory: Lungs are clear to auscultation, respirations are non-labored, breath sounds are equal, Symmetrical chest wall expansion. Gastrointestinal: Soft, Nontender, Non distended Musculoskeletal: Normal ROM, no deformity. Neurological: Alert and oriented, No focal neurological deficit observed. Psychiatric: Cooperative, appropriate mood & affect. Course Vital Signs: Vital signs: Vital Signs Temperature 98.2 F 07/25/25 16:16 Pulse Rate 70 07/25/25 16:41 Respiratory Rate 18 07/25/25 16:16 Blood Pressure 125/86 07/25/25 16:41 Pulse Oximetry 98 07/25/25 16:41 Oxygen Delivery Me thod Room Air 07/25/25 16:41 MDM - URI/Sore Throat Medical Decision Making Differential diagnosis for patient with shortness of breath includes but is not limited to and based on the above HPI, review of systems and physical exam: Pneumonia. Bronchitis. Asthma or COPD with acute exacerbation. Acute coronary syndrome / ID. Pulmonary embolism. Anxiety. Congestive heart failure. Viral infections including influenza and Covid-19. Atrial fibrillation. Anxiety. Pleural effusion. Pneumothorax. Orders placed to evaluate differential diagnosis based on the above differential, HPI and physical exam Chest x-ray: No acute process. No infiltrate. No pneumothorax. This was reviewed and interpreted by myself the emergency room physician. I also reviewed the radiology report. Lab Review: Laboratory results were reviewed and interpreted by myself the emergency room physician. Flu COVID and RSV are negative I reviewed the patient's medical record. Reexamination: Patient remained stable. No increased work of breathing. No altered mental status. No focal motor deficits. Assessment and plan: Viral upper respiratory illness Dehydration ? IV Decadron and IV fluids in the emergency room - Discharged home - Discussed plan with patient. Answered any questions. - Evaluation and treatment of this problem were appropriate in the emergency setting. Lab Data Radiology Impressions Chest X-Ray 07/25/25 16:31 IMPRESSION: No acute finding. Laboratory Results Influenza A (PCR) Negative (Negative) 07/25/25 16:38 Influenza Type B (PCR) Negative (Negative) 07/25/25 16:38 RSV (PCR) Negative (Negative) 07/25/25 16:38 SARS-CoV-2 (PCR) Negative (Negative) 07/25/25 16:38 All radiology interpretation(s) finalized by discharge Discharge Plan Discharge Patient Disposition: Home Clinical Impression: Upper respiratory infection Condition: Stable Prescriptions: New doxycycline hyclate 100 mg capsule 100 mg PO BID 7 Days Qty: 14 0RF benzonatate 200 mg capsule 200 mg PO TID PRN (Reason: cough) Qty: 30 0RF dexamethasone 6 mg tablet 6 mg PO DAILY 5 Days Qty: 5 0RF No Action ondansetron 4 mg tablet,disintegrating 4 mg PO Q6H PRN (Reason: nausea and vomiting) Qty: 90 0RF naproxen 500 mg tablet 500 mg PO BID PRN (Reason: pain) Qty: 60 0RF cyclobenzaprine 10 mg tablet 10 mg PO TID PRN (Reason: muscle spasm) Qty: 90 1RF trazodone 50 mg tablet 50 mg PO .QHS 30 Days Qty: 30 0RF metformin 500 mg tablet extended release 24 hr 500 mg PO BID 30 Days Qty: 60 3RF hydrocodone-acetaminophen 5-325 mg tablet 1 tab PO Q6H PRN (Reason: pain) Qty: 20 0RF Valtrex 1 gram tablet 1,000 mg PO TID Qty: 30 0RF Discharge Orders: Discharge ED (Routine); Ordered 07/25/25 Ordered By: Loulou Middleton Referrals: Ernestine Delaney MD [Primary Care Provider, Family Practice] Patient Instructions: Upper Respiratory Infection (ED), Opioid Safety, Pain Management, Patient Portal & Mariya Instructions Activity Restrictions/Additional Instructions: Thank you for choosing [facility] for your healthcare needs today. You have been screened and evaluated and felt safe for discharge. Health conditions do change or evolve sometimes and as such it is important that you follow up with your Primary Doctor to be re checked, 3-5 days is a general good time frame for follow up. 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
[2025-07-25 16:41] VITALS: BP 125/86; PULSE 70; O2SAT 98
[2025-07-25 17:34] LABS: Respiratory Syncytial Virus Ce NEGATIVE (Negative); SARS-CoV-2 PCR NEGATIVE (Negative)
[2025-07-25 17:59] VITALS: BP 126/77; PULSE 66; O2SAT 100
== END 2025-07-25 18:00 | disposition home or self-care (01) ==
PROVIDERS: Physician Assistant; Emergency Provider Emergency Medicine; PCP Family Medicine
DX: J06.9 Acute upper respiratory infection, unspecified (principal)
CPT/HCPCS: 36415; 71045; 87637; 96361; 96374; 99284; J1100; J7030